=== PATIENT | female | born 1955 | race Two or more races ===

== ENCOUNTER 2017-07-08 13:32 | Emergency (ER) | payer MEDICAID, OTHER ==
[~2017-07-08] VITALS: Ht 172.7 cm; Wt 81.6 kg
[2017-07-08 13:48] VITALS: BP 107/58
[2017-07-08 14:15] LABS: Basophils # (auto) 0 uL; Basophils % (auto) 0.7 % (0.0-2.0); Eosinophils # (auto) 0 uL; Eosinophils % (auto) 0.3 % (0.0-7.0); Hematocrit 42.5 % (36.0-46.0); Hemoglobin 14.4 g/dL (12.2-16.2); Lymphocytes # (auto) 1.6 uL; Lymphocytes % (auto) 23.7 % (10.0-50.0); Mean Corpuscular Hemoglobin 31.7 pg (28.0-32.0); Mean Corpuscular Hgb Conc. 33.9 g/dL (32.0-36.0); Mean Corpuscular Volume 93.6 fL (80.0-100.0); Monocytes # (auto) 0.4 uL; Monocytes % (auto) 6.6 % (0.0-12.0); Neutrophils # (auto) 4.7 uL; Neutrophils % (auto) 68.7 % (37.0-80.0); Nucleated Red Blood Cells % 0.1 %; Platelet Count (auto) 227 10^3/uL (140-450); Red Blood Cells 4.54 10^6/uL (4.0-5.20); Red Cell Distribution Width 13.6 % (11.8-14.3); White Blood Cell 6.8 10^3/uL (4.4-10.8)
[2017-07-08 14:28] LABS: INR 0.93 (0.9-1.15); Partial Thromboplastin Time 27.6 sec (22.64-33.71); Prothrombin Time 10.1 sec (9.37-12.3)
[2017-07-08] MEDS ORDERED: cefTRIAXone W LIDOCAINE 1 GM IM IM ONE (15:30)
[2017-07-08 15:50] LABS: GFR African American 75 mL/min; GFR Non-African American 62 mL/min
[2017-07-08 15:55] LABS: Anion Gap 13 (5-15); Carbon Dioxide 20 mmol/L (21-32); Chloride 99 mmol/L (98-107); Glucose 267 mg/dL (74-106); Potassium 3.9 mmol/L (3.5-5.1); Sodium 132 mmol/L (136-145)
[2017-07-08 15:56] LABS: Alanine Aminotransferase 24 U/L (13-56); Albumin 3.7 g/dL (3.4-5.0); Alkaline Phosphatase 108 U/L (45-117); Aspartate Aminotransferase 19 U/L (15-37); BUN/Creatinine Ratio 17.7; Bilirubin, Total 0.3 mg/dL (0.2-1.0); Blood Urea Nitrogen 17 mg/dL (7-18); Calcium 9.5 mg/dL (8.5-10.1); Total Protein 8.3 g/dL (6.4-8.2)
== END 2017-07-08 16:40 | disposition left against medical advice (07) ==
LOC: ER 13:32
DX: R07.9 Chest pain, unspecified (principal); E11.9 Type 2 diabetes mellitus without complications; I10 Essential (primary) hypertension
CPT/HCPCS: 36415; 80053; 83880; 84484; 85025; 85610; 85730; 93005; 99285; J0696

== ENCOUNTER 2022-01-23 06:50 | Day surgery (SDC) | payer OTHER ==
[~2022-01-23] VITALS: Ht 172.7 cm; Wt 77.1 kg
[2022-01-23] VITALS (8 sets, daily range): BP systolic 115–140; BP diastolic 58–78
[~2022-01-23 06:50] MED LIST: ASPI-543 PO; ATOR40TA52 PO; DULO60CA PO; INSLANTI SC; LORA-622 PO; LOSA-69 PO; METO25TA93 PO; POM
[2022-01-23] MEDS ORDERED: VERAPAMIL 2.5MG/ML INJ 2ML VIAL IV ONE (08:26)
[2022-01-23] MEDS ORDERED: ANGIOMAX 250 MG VIAL IV ONE (08:26)
[2022-01-23] MEDS ORDERED: fentaNYL CITRATE 100 MCG/2 ML VL ONE (08:27)
[2022-01-23] MEDS ORDERED: MIDAZOLAM HCL 2MG/2ML 2ml VIAL (1mg/ml) ONE (08:27)
[2022-01-23] MEDS ORDERED: SODIUM CHL 0.9% 0 ML ONE (08:27)
[2022-01-23] MEDS ORDERED: HEPARIN SODIUM (PORCINE) 5000 UNITS/ML 1ML VIAL ONE (08:52)
== END 2022-01-23 11:48 | disposition home or self-care (01) ==
LOC: CATH 06:50
PROVIDERS: ATTEND Internal Medicine Cardiovascular Disease
DX: R94.39 Abnormal result of other cardiovascular function study (principal); I25.10 Atherosclerotic heart disease of native coronary artery without angina pectoris; I10 Essential (primary) hypertension; E78.5 Hyperlipidemia, unspecified; E11.9 Type 2 diabetes mellitus without complications; Z87.891 Personal history of nicotine dependence; Z79.82 Long term (current) use of aspirin; Z20.822 Contact with and (suspected) exposure to COVID-19
CPT/HCPCS: 93458; C1769; C1887; C1894; J1644; J2250; J3010; J7040; U0003; 99152

== ENCOUNTER 2023-08-22 17:28 | Emergency (ER) | payer OTHER ==
[~2023-08-22] VITALS: Ht 172.7 cm; Wt 82.5 kg
[~2023-08-22 17:28] MED LIST changes: -DULO60CA PO; +DULO60CA41 PO; -LOSA-69 PO; +LOSA50TA46 PO
[2023-08-22 17:53] VITALS: BP 146/77; PULSE 96; RESP 18; O2SAT 97
== END 2023-08-22 18:27 | disposition left against medical advice (07) ==
LOC: ER 17:28
DX: H10.212 Acute toxic conjunctivitis, left eye (principal); E11.9 Type 2 diabetes mellitus without complications; I10 Essential (primary) hypertension